=== PATIENT | female | born 1995 | race Caucasian/White ===

== ENCOUNTER 2025-06-08 10:59 | Emergency (ER) | payer MEDICAID ==
[~2025-06-08] VITALS: Ht 162.6 cm; Wt 60.0 kg
[2025-06-08 11:06] VITALS: O2SAT 100
[2025-06-08 11:26] LABS: BASOPHILS % 0.3 % (0.0-2.0); EOSINOPHILS % 0.4 % (0.0-5.0); HEMATOCRIT. 38.0 % (36.0-48.0); HEMOGLOBIN. 12.4 g/dL (12.0-16.0); LYMPHOCYTES % 23.8 % (20.0-50.0); MEAN PLATELET VOLUME 9.2 fl (7.4-10.4); MONOCYTES % 8.5 % (2.0-8.0); NEUTROPHILS % 67.0 % (40.0-76.0); PLATELET 211 x1000/uL (130-400); RED BLOOD CELL COUNT 4.23 mill/uL (4.2-5.4); RED CELL DISTRIBUTION WIDTH 13.8 % (11.6-14.6)
[2025-06-08] MEDS: ONDANSETRON 4MG ODT PO ONE (11:32)
[2025-06-08 11:56] LABS: CREATININE 0.7 mg/dL (0.6-1.0); UREA NITROGEN BLOOD 11 mg/dL (9-23)
[2025-06-08 11:57] LABS: HCG SCREEN NEGATIVE
[2025-06-08 11:58] LABS: ASPARTATE AMINOTRANSFERASE 14 IU/L (<34); BILIRUBIN DIRECT 0.6 mg/dL (<=3.0); BILIRUBIN TOTAL 1.8 mg/dL (0.1-1.0); PROTEIN TOTAL 7.1 g/dL (6.0-8.3)
[2025-06-08 14:25] VITALS: BP 99/56; PULSE 66; RESP 18; TEMP 36.7; O2SAT 100
[2025-06-08 14:40] LABS: CLARITY URINE CLOUDY (CLEAR); COLOR URINE YELLOW (YELLOW); GLUCOSE URINE NEGATIVE (NEGATIVE); KETONES URINE NEGATIVE (NEGATIVE); LEUKOCYTE ESTERASE URINE 2+ (NEGATIVE); NITRITE URINE NEGATIVE (NEGATIVE); OCCULT BLOOD URINE NEGATIVE (NEGATIVE); PH URINE 6.5 (4.5-8.0); PROTEIN URINE NEGATIVE (NEGATIVE); SPECIFIC GRAVITY URINE 1.017 (1.005-1.030); UROBILINOGEN URINE 0.2 E.U./dL (0.2-1.0)
[2025-06-08 14:59] LABS: SQUAMOUS EPITHELIAL CELL URINE 3+ /lpf (RARE/1+)
[2025-06-08 15:00] LABS: BACTERIA URINE 3+; WBC URINE 15-25 /hpf (0-2)
[2025-06-08 15:01] LABS: RBC URINE NONE SEEN /hpf (0-2)
== END 2025-06-08 14:31 | disposition home or self-care (01) ==
LOC: ER 10:59
DX: R10.31 Right lower quadrant pain (principal)
CPT/HCPCS: 99284; 74176; 93976; 76830; 76856; 80076; 80048; 81003; 84703; 83690; 85025; 87086; 87186; 87077; 36415; Q0162